=== PATIENT | female | born 1985 | race African-American/Black ===

== ENCOUNTER 2017-09-08 15:20 | Emergency (ER) | payer OTHER ==
--- NOTE | 2017-09-08 16:28 | RAD ---
RADIOGRAPH CHEST 2 VIEWS: 09/08/17 HISTORY: 32-year-old female with cough. FINDINGS: There is no air space density, pulmonary edema, pleural effusion, or pneumothorax. There is dextrosco liosis of the thoracic spine and a levoscoliosis at the thoracolumbar junction. IMPRESSION: 1. No acute pulmonary findings. 2. S-shaped scoliosis. jn r POS: [facility]
== END 2017-09-08 16:55 | disposition home or self-care (01) ==
LOC: MADERS 15:20
DX: J18.9 Pneumonia, unspecified organism (principal)
CPT/HCPCS: 71046; 87804

== ENCOUNTER 2018-02-21 20:17 | Emergency (ER) | payer OTHER ==
[2018-02-21 20:58] LABS: Bilirubin Negative (Negative); Blood, Urine Small (Negative); Clarity Clear (Clear); Glucose, Urine (Dipstick) Negative (Negative); Leukocyte Negative (Negative); Nitrite Negative (Negative); Protein, Urine (Dipstick) Negative (Neg-Trace); Urobilinogen 0.2 mg/dL (0.2-1.0)
[2018-02-21 20:59] LABS: Pregnancy Test - Urine (BHCG) Negative (Negative); Pregu Control Background? CLEAR/WHITE (CLR/WHITE); Pregu Control Bar Appear? YES (CONTROL BAR)
[2018-02-21 21:01] LABS: WBC/HPF 0-3 HPF (0-3)
[2018-02-21] MEDS ORDERED: Ketorolac Tromethamine 60 MG/2 ML VIAL ONE (21:01)
[2018-02-21 21:02] LABS: Bacteria/HPF 2+ HPF (None Seen); Squamous Epithelial 0-3 HPF (0-3)
[2018-02-21] MEDS ORDERED: Nitrofurantoin Monohyd/M-Cryst 100 MG CAP ONE (21:16)
== END 2018-02-21 21:20 | disposition home or self-care (01) ==
LOC: MADERS 20:17
DX: N39.0 Urinary tract infection, site not specified (principal); G44.209 Tension-type headache, unspecified, not intractable
CPT/HCPCS: 81001; 81025; 96372; J1885

== ENCOUNTER 2018-04-10 15:20 | Emergency (ER) | payer OTHER | END 2018-04-10 16:21 | disposition home or self-care (01) | LOC: MADERS 15:20 | DX: J06.9 Acute upper respiratory infection, unspecified (principal) | CPT/HCPCS: 99281 ==

== ENCOUNTER 2018-06-07 07:23 | Emergency (ER) | payer OTHER ==
[2018-06-07] MEDS ORDERED: Ondansetron ODT 4 MG TAB ONE (07:56)
[2018-06-07] MEDS ORDERED: Oseltamivir 75 MG CAP ONE (08:31)
[2018-06-07] MEDS ORDERED: Ibuprofen 800 MG TAB ONE (08:43)
== END 2018-06-07 08:50 | disposition home or self-care (01) ==
LOC: MADERS 07:23
DX: J11.1 Influenza due to unidentified influenza virus with other respiratory manifestations (principal)
CPT/HCPCS: 87081; 87430; 99283; Q0162

== ENCOUNTER 2018-08-26 22:45 | Emergency (ER) | payer OTHER ==
[2018-08-26 23:38] LABS: Bilirubin Negative (Negative); Blood, Urine Trace (Negative); Glucose, Urine (Dipstick) Negative (Negative); Leukocyte Negative (Negative); Nitrite Negative (Negative); Protein, Urine (Dipstick) Trace mg/dL (Neg-Trace); Specific Gravity, Urine 1.015 (1.005-1.030); Urobilinogen 0.2 mg/dL (0.2-1.0); pH, Urine 8.5 (5.0-9.0)
[2018-08-26 23:39] LABS: Clarity Hazy (Clear)
[2018-08-26 23:40] LABS: Bacteria/HPF 1+ HPF (None Seen); Pregnancy Test - Urine (BHCG) Negative (Negative); Specific Gravity 1.015 (1.002-1.036); Yeast-All Forms Rare HPF (None Seen)
[2018-08-26 23:41] LABS: Pregu Control Background? CLEAR/WHITE (CLR/WHITE); Pregu Control Bar Appear? YES (CONTROL BAR)
== END 2018-08-26 23:30 | disposition home or self-care (01) ==
LOC: MADERS 22:45
DX: N39.0 Urinary tract infection, site not specified (principal)
CPT/HCPCS: 81003; 81015; 81025; 99283

== ENCOUNTER 2019-03-21 10:38 | Emergency (ER) | payer OTHER ==
[2019-03-21] MEDS ORDERED: Ibuprofen 800 MG TAB ONE (11:13)
[2019-03-21 11:27] LABS: Bilirubin Negative (Negative); Blood, Urine Small (Negative); Clarity Clear (Clear); Glucose, Urine (Dipstick) Negative (Negative); Leukocyte Negative (Negative); Nitrite Negative (Negative); Protein, Urine (Dipstick) Negative (Neg-Trace); Urobilinogen 0.2 mg/dL (Less than 2)
[2019-03-21 11:33] LABS: Bacteria/HPF Rare-Few HPF (None Seen); Squamous Epithelial 0-3 HPF (0-3); WBC/HPF 0-3 HPF (0-3)
== END 2019-03-21 11:54 | disposition home or self-care (01) ==
LOC: MADERS 10:38
DX: R30.0 Dysuria (principal); M79.671 Pain in right foot
CPT/HCPCS: 81003; 81015; 87086; 99283

== ENCOUNTER 2019-03-28 00:03 | Emergency (ER) | payer OTHER ==
[2019-03-28 01:16] LABS: Bilirubin Negative (Negative); Blood, Urine Moderate (Negative); Clarity Clear (Clear); Glucose, Urine (Dipstick) Negative (Negative); Leukocyte Negative (Negative); Nitrite Negative (Negative); Protein, Urine (Dipstick) Negative (Neg-Trace); Urobilinogen 0.2 mg/dL (Less than 2)
[2019-03-28 01:18] LABS: Pregnancy Test - Urine (BHCG) Negative (Negative); Pregu Control Background? CLEAR/WHITE (CLR/WHITE); Pregu Control Bar Appear? YES (CONTROL BAR); Specific Gravity 1.027 (1.002-1.036)
[2019-03-28 01:26] LABS: Bacteria/HPF Rare-Few HPF (None Seen); Mucous/LPF 3+ LPF (<2+); WBC/HPF 0-3 HPF (0-3)
[2019-03-28] MEDS ORDERED: Cyclobenzaprine 10 MG TAB ONE ×2 (01:26→01:27)
[2019-03-28] MEDS ORDERED: Ibuprofen 800 MG TAB ONE (01:26)
[2019-03-28] MEDS ORDERED: Acetaminophen/Codeine 30-300mg Tablet ONE (01:26)
== END 2019-03-28 01:33 | disposition home or self-care (01) ==
LOC: MADERS 00:03
DX: S16.1XXA Strain of muscle, fascia and tendon at neck level, initial encounter (principal); X50.9XXA Other and unspecified overexertion or strenuous movements or postures, initial encounter
CPT/HCPCS: 36416; 81003; 81015; 81025; 99283

== ENCOUNTER 2019-06-17 00:37 | Emergency (ER) | payer OTHER ==
[2019-06-17] MEDS ORDERED: Acetaminophen 500 MG TAB ONE (01:36)
[2019-06-17] MEDS ORDERED: Ketorolac Tromethamine 30 MG/ML VIAL ONE (01:36)
== END 2019-06-17 01:57 | disposition home or self-care (01) ==
LOC: MADERS 00:37
DX: M79.662 Pain in left lower leg (principal); F41.9 Anxiety disorder, unspecified; F43.22 Adjustment disorder with anxiety; Z86.718 Personal history of other venous thrombosis and embolism
CPT/HCPCS: 96372; 99283; J1885

== ENCOUNTER 2019-06-24 07:52 | Emergency (ER) | payer OTHER | END 2019-06-24 08:49 | disposition home or self-care (01) | LOC: MADERS 07:52 | DX: J02.8 Acute pharyngitis due to other specified organisms (principal); B97.89 Other viral agents as the cause of diseases classified elsewhere; Z86.718 Personal history of other venous thrombosis and embolism | CPT/HCPCS: 99282 ==

== ENCOUNTER 2020-01-31 14:08 | Emergency (ER) | payer BC, OTHER ==
[2020-01-31] MEDS ORDERED: Ibuprofen 600 MG TAB ONE (16:17)
[2020-02-01 16:50] LABS: SARS-CoV-2 MS2 Positive; SARS-CoV-2 N Gene Negative; SARS-CoV-2 S Gene Negative; SARS-CoV-2 by NAA Not Detected (NotDetected); SARS-CoV-2 orf1ab Negative
== END 2020-01-31 17:35 | disposition home or self-care (01) ==
LOC: MADERS 14:08
DX: B34.9 Viral infection, unspecified (principal); Z20.828 Contact with and (suspected) exposure to other viral communicable diseases
CPT/HCPCS: 87081; 87430; 87635; 87804; 99283; U0003

== ENCOUNTER 2020-03-26 22:34 | Emergency (ER) | payer BC, OTHER ==
[2020-03-26] MEDS ORDERED: Ondansetron ODT 4 MG TAB ONE (22:58)
[2020-03-26] MEDS ORDERED: Ibuprofen 800 MG TAB ONE (23:19)
== END 2020-03-26 23:59 | disposition home or self-care (01) ==
LOC: MADERS 22:34
DX: B34.9 Viral infection, unspecified (principal); R11.2 Nausea with vomiting, unspecified; Z20.828 Contact with and (suspected) exposure to other viral communicable diseases
CPT/HCPCS: 99283; Q0162

== ENCOUNTER 2020-03-31 03:29 | Emergency (ER) | payer BC, OTHER ==
[2020-03-31] MEDS ORDERED: Ketorolac Tromethamine 30 MG/ML VIAL ONE (04:43)
[2020-03-31] MEDS ORDERED: Sodium Chloride 0.9% 1,000 ML ONE (04:43)
[2020-03-31] MEDS ORDERED: Ondansetron PF 4 MG/2 ML Vial ONE (04:43)
--- NOTE | 2020-03-31 07:46 | RAD ---
XR Chest 1 View Portable History: Infiltrates Comparison: None Findings: Lungs are hypoinflated with vascular crowding and bibasilar atelectasis. No pneumothorax. N o effusion. No definite airspace consolidation. Mild midthoracic spine dextroscoliosis. Impression: Lung hypoinflation with vascular crowding and atelectasis. If there is pneumonia concern, repeat 2 views with full inspiration recommended.
[2020-04-01 01:49] LABS: SARS-CoV-2 MS2 Positive; SARS-CoV-2 N Gene Positive; SARS-CoV-2 S Gene Positive; SARS-CoV-2 by NAA DETECTED (NotDetected); SARS-CoV-2 orf1ab Positive
== END 2020-03-31 05:45 | disposition home or self-care (01) ==
LOC: MADERS 03:29
DX: U07.1 COVID-19 (principal)
CPT/HCPCS: 71045; 87635; 93005; 96374; 96375; J1885; J2405; J7050; U0003

== ENCOUNTER 2020-06-15 12:04 | Outpatient (CLI) | payer BC, OTHER | END 2020-06-15 12:05 | disposition home or self-care (01) | LOC: MADRAD 12:04 | PROVIDERS: ATTEND Family Medicine | DX: M79.671 Pain in right foot (principal) ==

== ENCOUNTER 2020-11-07 09:24 | Emergency (ER) | payer BC, OTHER ==
[2020-11-07] MEDS ORDERED: Ibuprofen 800 MG TAB ONE (09:55)
== END 2020-11-07 10:39 | disposition home or self-care (01) ==
LOC: MADERS 09:24
DX: S93.602A Unspecified sprain of left foot, initial encounter (principal); X50.1XXA Overexertion from prolonged static or awkward postures, initial encounter

== ENCOUNTER 2021-01-17 07:34 | Emergency (ER) | payer BC, OTHER ==
[2021-01-17] MEDS ORDERED: Ibuprofen 800 MG TAB ONE (08:07)
[2021-01-17 08:12] LABS: Bilirubin Negative (Negative); Blood, Urine Trace (Negative); Clarity Clear (Clear); Glucose, Urine (Dipstick) Negative (Negative); Ketone, Urine Negative (Negative); Leukocyte Negative (Negative); Nitrite Negative (Negative); Protein, Urine (Dipstick) Negative (Neg-Trace); Specific Gravity, Urine 1.015 (1.005-1.030); Urobilinogen 0.2 mg/dL (Less than 2)
[2021-01-17 08:13] LABS: RBC/HPF 0-3 HPF (0-3)
== END 2021-01-17 08:46 | disposition home or self-care (01) ==
LOC: MADERS 07:34
DX: R30.0 Dysuria (principal); I10 Essential (primary) hypertension; E66.9 Obesity, unspecified; E83.51 Hypocalcemia; Z79.899 Other long term (current) drug therapy
CPT/HCPCS: 81001; 87086; 99283

== ENCOUNTER 2021-04-08 16:33 | Emergency (ER) | payer BC, OTHER | END 2021-04-08 18:36 | disposition home or self-care (01) | LOC: MADERS 16:33 | DX: B34.9 Viral infection, unspecified (principal); Z20.822 Contact with and (suspected) exposure to COVID-19 | CPT/HCPCS: 99283 ==

== ENCOUNTER 2021-05-24 06:06 | Emergency (ER) | payer BC, OTHER ==
[2021-05-24] MEDS ORDERED: Orphenadrine Citrate 60 MG/2 ML VIAL ONE (06:45)
== END 2021-05-24 07:50 | disposition home or self-care (01) ==
LOC: MADERS 06:06
DX: M62.830 Muscle spasm of back (principal)
CPT/HCPCS: 96372; 99283; J2360

== ENCOUNTER 2021-07-28 12:41 | Emergency (ER) | payer BC, OTHER ==
[2021-07-28] MEDS ORDERED: Ondansetron ODT 4 MG TAB ONE (13:08)
[2021-07-28] MEDS ORDERED: Acetaminophen/Codeine 30-300mg Tablet ONE (14:15)
[2021-07-28] MEDS ORDERED: Benzonatate 100 MG CAP ONE (14:16)
[2021-07-28] MEDS ORDERED: Azithromycin 250 MG TAB ONE (14:16)
== END 2021-07-28 14:23 | disposition home or self-care (01) ==
LOC: MADERS 12:41
DX: J15.9 Unspecified bacterial pneumonia (principal); R11.2 Nausea with vomiting, unspecified
CPT/HCPCS: 71046; 87804; Q0162

== ENCOUNTER 2022-01-05 09:11 | Emergency (ER) | payer BC, OTHER ==
[2022-01-05] MEDS ORDERED: Ondansetron ODT 4 MG TAB ONE (09:54)
== END 2022-01-05 11:05 | disposition home or self-care (01) ==
LOC: MADERS 09:11
DX: B34.9 Viral infection, unspecified (principal); R11.2 Nausea with vomiting, unspecified; Z20.822 Contact with and (suspected) exposure to COVID-19; Z79.899 Other long term (current) drug therapy
CPT/HCPCS: 87804; 99284; Q0162; U0003; U0005

== ENCOUNTER 2023-06-07 17:22 | Emergency (ER) | payer OTHER, SELFPAY ==
[2023-06-07] MEDS ORDERED: Dexamethasone 10 MG/ML VIAL ONE (18:30)
[2023-06-07] MEDS ORDERED: Bicillin LA 1.2 MILLION UNITS/2 ML SYRINGE ONE (18:30)
== END 2023-06-07 18:54 | disposition home or self-care (01) ==
LOC: MADERS 17:22
DX: J02.0 Streptococcal pharyngitis (principal)
CPT/HCPCS: 96372; 99282; J0561; J1100